=== PATIENT | female | born 1965 | race Caucasian/White ===

== ENCOUNTER 2020-03-09 22:18 | Emergency (ER) | payer MEDICARE, OTHER ==
[2020-03-09] MEDS ORDERED: Adacel (T-DAP) 0.5 ML SYRINGE ONE (22:44)
== END 2020-03-09 22:43 | disposition home or self-care (01) ==
LOC: BURERS 22:18
DX: S81.811A Laceration without foreign body, right lower leg, initial encounter (principal); Z23 Encounter for immunization; Z87.891 Personal history of nicotine dependence; W01.198A Fall on same level from slipping, tripping and stumbling with subsequent striking against other object, initial encounter
CPT/HCPCS: 12002; 90471; 90715

== ENCOUNTER 2020-03-23 14:36 | Emergency (ER) | payer MEDICARE, OTHER | END 2020-03-23 15:03 | disposition home or self-care (01) | LOC: BURERS 14:36 | DX: S81.811D Laceration without foreign body, right lower leg, subsequent encounter (principal); Z87.891 Personal history of nicotine dependence; Z79.51 Long term (current) use of inhaled steroids; X58.XXXD Exposure to other specified factors, subsequent encounter ==